=== PATIENT | female | born 1980 | race Caucasian/White ===

== ENCOUNTER 2020-01-24 12:57 | Emergency (ER) | payer MEDICAID, OTHER ==
[~2020-01-24] VITALS: Ht 162.6 cm; Wt 108.5 kg
--- NOTE | 2020-01-24 13:18 | NUR ---
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
--- NOTE | 2020-01-24 13:20 | NUR ---
PT BROUGHT BACK TO ROOM VIA WC.
--- NOTE | 2020-01-24 13:28 | NUR ---
PT MILDLY SOB, ESPECIALLY WHEN TALKING AND WHEN WEARING MASK SHE SAYS. SPO2 100% ON RA.
--- NOTE | 2020-01-24 13:28 | NUR ---
KATHIE PINZON AT BS NOW.
[2020-01-24] MEDS ORDERED: ASPIRIN 81 MG TABLET CHEW ONE (13:45)
--- NOTE | 2020-01-24 13:51 | NUR ---
PT MEDICATED PER ODERS. POC RV'WD WITH HER. LABS DRAWN AND CXR DONE AT BS.
[2020-01-24] MEDS ORDERED: ASPIRIN 81 MG TABLET CHEW PO ONE (14:00)
[2020-01-24 14:02] LABS: BASOPHILS # (AUTO) 0.08 x10^3/uL (0-0.1); BASOPHILS % (AUTO) 1 % (0-1); EOSINOPHILS # (AUTO) 0.37 x10^3/uL (0-0.4); EOSINOPHILS % (AUTO) 4 % (1-7); LYMPHOCYTES # (AUTO) 2.37 x10^3/uL (1-3.4); LYMPHOCYTES % (AUTO) 28 % (22-44); MD NO; MEAN CORPUSCULAR HEMOGLOBIN 32.2 pg (27.0-34.8); MEAN CORPUSCULAR HGB CONC 33.5 g/dL (32.4-35.8); MEAN CORPUSCULAR VOLUME 96.2 fL (80-100); MEAN PLATELET VOLUME 8.2 fL (7.4-10.4); MONOCYTES # (AUTO) 0.76 x10^3/uL (0.2-0.8); MONOCYTES % (AUTO) 9 % (2-9); NEUTROPHILS # (AUTO) 5.05 x10^3/uL (1.8-6.8); NEUTROPHILS % (AUTO) 59 % (42-75); PLATELET COUNT 357 x10^3/uL (130-400); RED CELL DISTRIBUTION WIDTH 12.7 % (9.6-15.2)
[2020-01-24 14:15] LABS: CHLORIDE 107 mmol/L (98-107)
[2020-01-24 14:24] LABS: ALANINE AMINOTRANSFERASE 34 U/L (12-78); ALBUMIN 3.6 g/dL (3.4-5.0); ALKALINE PHOSPHATASE 87 U/L (45-117); ANION GAP 8 mmol/L (5-15); BILIRUBIN,TOTAL 0.7 mg/dL (0.2-1.0); TOTAL PROTEIN 7.1 g/dL (6.4-8.2); TROPONIN I < 0.015 ng/mL (0.000-0.045)
--- NOTE | 2020-01-24 14:35 | NUR ---
PT GOT UP TO [facility]. RV'WD PLAN FOR CTA WITH PT, SHE VERBALIZES UNDERSTANDING.
--- NOTE | 2020-01-24 14:57 | NUR ---
PT REQUESTED COVID SWAB FOR RETURNING TO WORK. STATES SHE HAD SWAB DONE ONLY IN HER EXERNAL NARES AND WAS ADVISED TO COME HERE FOR A "REAL TEST". ERP NOTIFIED, TEST ORDERED. PT TO CT VIA [facility] AT THIS TIME.
[2020-01-24] MEDS ORDERED: OMNIPAQUE 350 MG/ML, 100ML BOTTLE ONE ×2 (15:19→15:54)
--- NOTE | 2020-01-24 15:56 | NUR ---
KATHIE PINZON AT FOR RECHECK.
[2020-01-24 16:03] VITALS: BP 131/91
--- NOTE | 2020-01-24 16:05 | NUR ---
D/C INSTRUCTIONS & F/U APPT RV'WD WITH PT, SHE VERBALIZES UNDERSTANDING. INSTRUCTED PT TO RETURN TO ED FOR WORSENING SOB OR CHEST PAIN. INSTRUCTED PT TO QUARANTINE UNTIL COVID RESULTS BACK. PT AMBULATED OUT OF ED WITHOUT DIFFICULTY, STATES FRIEND WILL PICK HER UP.
== END 2020-01-24 16:05 | disposition home or self-care (01) ==
LOC: ED 15:13
DX: R06.00 Dyspnea, unspecified (principal); Z20.828 Contact with and (suspected) exposure to other viral communicable diseases; R00.2 Palpitations; R05 Cough; R00.0 Tachycardia, unspecified; R07.89 Other chest pain; Z87.891 Personal history of nicotine dependence; Z90.710 Acquired absence of both cervix and uterus
CPT/HCPCS: 36415; 71045; 71275; 80053; 84484; 85025; 85379; 87635; 93005; 99285; Q9967